=== PATIENT | female | born 1975 | race Caucasian/White ===

== ENCOUNTER → 2019-12-06 13:59 | Outpatient (BNVA) | payer SELFPAY | PROVIDERS: Family Provider Nurse Practitioner Family; PCP Nurse Practitioner Family; Visit Provider Family Medicine | DX: N89.8 Other specified noninflammatory disorders of vagina (principal); R10.32 Left lower quadrant pain; B37.3 Candidiasis of vulva and vagina | CPT/HCPCS: 81000; 81025; 87491; 87591; 87661 ==

== ENCOUNTER 2020-02-07 11:58 | Outpatient (CLI) | payer BC, SELFPAY ==
--- NOTE | 2020-02-07 12:45 | US_ITS ---
WS: [id number] ULTRASOUND PELVIS TECHNIQUE: Transabdominal and transvaginal. CLINICAL INFORMATION: LLQ pain, concern for cyst, torsion : No. COMPARISON: None. FINDINGS: Uterus Orientation: Anteverted. Size: 9.99 cm x 6.1 cm x 5.4 cm. Masses: Suspected myometrial fibroid measuring 2.6 x 1.9 x 2.5 cm Cervix: Nabothian cysts in the cervix. Endometrium: Normal. Endometrium thickness: 1.0 cm. Adnexa: Right ovary suboptimally visualized due to positioning. No adnexal masses. Right ovary size: 2.9 cm x 1.8 cm x 1.4 cm. Right ovary volume: 3.8 ccm3. Left ovary size: 3.3 cm x 3.2 cm x 1.6 cm. Left ovary volume: 8.5 ccm3 Free fluid: None. Other findings: None. US/US pelvic with transvaginal IMPRESSION: 1. Normal uterus with normal endometrium measuring 9.9 mm. 2. Suspected small uterine fibroid measuring 2.6 x 1.9 x 2.5 cm 3. Physiologic follicles left ovary. Both ovaries are normal in appearance. 4. No free fluid in the cul-de-sac. 5. No other significant findings.
== END 2020-02-07 11:59 | disposition home or self-care (01) ==
LOC: RAD 12:04
PROVIDERS: PCP Nurse Practitioner Family; Visit Provider Family Medicine
DX: R10.32 Left lower quadrant pain (principal)
CPT/HCPCS: 76830; 76856

== ENCOUNTER → 2020-10-27 14:26 | Outpatient (BNVA) | payer OTHER, SELFPAY | PROVIDERS: PCP Nurse Practitioner Family; Visit Provider Nurse Practitioner Family | DX: N39.0 Urinary tract infection, site not specified (principal); R31.21 Asymptomatic microscopic hematuria | CPT/HCPCS: 81000 ==